=== PATIENT | female | born 1990 | race African-American/Black ===

== ENCOUNTER 2018-07-14 20:18 | Emergency (ER) | payer SELFPAY ==
[~2018-07-14] VITALS: Ht 167.6 cm; Wt 88.5 kg
[2018-07-14 20:24] VITALS: BP 128/80
[2018-07-14] MEDS ORDERED: IBUPROFEN 600 MG TABLET PO ONE ×2 (21:30→22:05)
== END 2018-07-14 22:14 | disposition home or self-care (01) ==
LOC: ER 20:20
DX: S16.1XXA Strain of muscle, fascia and tendon at neck level, initial encounter (principal); M25.512 Pain in left shoulder; M54.5 Low back pain; Z60.2 Problems related to living alone; V49.49XA Driver injured in collision with other motor vehicles in traffic accident, initial encounter; Y93.89 Activity, other specified; Y92.413 State road as the place of occurrence of the external cause; Y99.8 Other external cause status
CPT/HCPCS: A4606; Z7610